=== PATIENT | female | born 1980 | race Two or more races ===

== ENCOUNTER 2019-11-25 14:57 | Outpatient (CLI) | payer OTHER | END 2019-11-25 15:02 | disposition home or self-care (01) | LOC: RAD 14:57 | PROVIDERS: ATTEND Orthopaedic Surgery | DX: M25.572 Pain in left ankle and joints of left foot (principal) ==

== ENCOUNTER 2019-12-02 15:09 | Outpatient (CLI) | payer OTHER | END 2019-12-02 15:13 | disposition home or self-care (01) | LOC: RAD 15:09 | PROVIDERS: ATTEND Orthopaedic Surgery | DX: M25.572 Pain in left ankle and joints of left foot (principal) ==

== ENCOUNTER 2020-01-04 09:46 | Outpatient (CLI) | payer OTHER | END 2020-01-04 09:52 | disposition home or self-care (01) | LOC: RAD 09:46 | PROVIDERS: ATTEND Orthopaedic Surgery | DX: S82.872D Displaced pilon fracture of left tibia, subsequent encounter for closed fracture with routine healing (principal) ==

== ENCOUNTER 2020-02-09 10:12 | Outpatient (CLI) | payer OTHER | END 2020-02-09 10:21 | disposition HB | LOC: RAD 10:12 | PROVIDERS: ATTEND Orthopaedic Surgery | DX: S82.872D Displaced pilon fracture of left tibia, subsequent encounter for closed fracture with routine healing (principal) ==

== ENCOUNTER 2020-03-07 12:49 | Outpatient (CLI) | payer OTHER | END 2020-03-07 12:57 | disposition home or self-care (01) | LOC: RAD 12:49 | PROVIDERS: ATTEND Orthopaedic Surgery | DX: S82.872D Displaced pilon fracture of left tibia, subsequent encounter for closed fracture with routine healing (principal) ==

== ENCOUNTER 2020-06-29 10:13 | Outpatient (CLI) | payer OTHER | END 2020-06-29 15:23 | disposition home or self-care (01) | LOC: RAD 10:13 | PROVIDERS: ATTEND General Practice | DX: S82 Fracture of lower leg, including ankle (principal) ==

== ENCOUNTER 2020-08-23 08:06 | Outpatient (CLI) | payer OTHER | END 2020-08-23 08:12 | disposition home or self-care (01) | LOC: MRI 08:06 | PROVIDERS: ATTEND Radiology Nuclear Radiology | DX: D25.0 Submucous leiomyoma of uterus (principal); N80.0 Endometriosis of uterus; D25.1 Intramural leiomyoma of uterus | CPT/HCPCS: 72197 ==

== ENCOUNTER 2020-10-24 15:09 | Outpatient (CLI) | payer OTHER | END 2020-10-24 15:18 | disposition home or self-care (01) | LOC: EKG 15:09 | DX: Z01.810 Encounter for preprocedural cardiovascular examination (principal); D25.1 Intramural leiomyoma of uterus ==

== ENCOUNTER 2020-12-20 14:12 | Outpatient (CLI) | payer OTHER | END 2020-12-20 14:22 | disposition home or self-care (01) | LOC: SONOGRAMA 14:12 | DX: N64.4 Mastodynia (principal) ==

== ENCOUNTER 2021-06-26 12:03 | Outpatient (CLI) | payer OTHER | END 2021-06-26 12:08 | disposition home or self-care (01) | LOC: MAMO-SONO 12:03 | PROVIDERS: ATTEND Obstetrics & Gynecology | DX: N63.20 Unspecified lump in the left breast, unspecified quadrant (principal) ==

== ENCOUNTER 2021-10-12 14:01 | Outpatient (CLI) | payer OTHER | END 2021-10-12 14:09 | disposition home or self-care (01) | LOC: RAD 14:01 | DX: M25.511 Pain in right shoulder (principal) ==

== ENCOUNTER 2021-11-14 09:43 | Outpatient (CLI) | payer OTHER | END 2021-11-14 09:47 | disposition home or self-care (01) | LOC: SONOGRAMA 09:43 | PROVIDERS: ATTEND General Practice | DX: N85.8 Other specified noninflammatory disorders of uterus (principal) ==

== ENCOUNTER 2022-11-18 11:54 | Outpatient (CLI) | payer OTHER | END 2022-11-18 12:02 | disposition home or self-care (01) | LOC: MAMO-SONO 11:54 | DX: Z12.31 Encounter for screening mammogram for malignant neoplasm of breast (principal); N64.4 Mastodynia; R10.2 Pelvic and perineal pain ==

== ENCOUNTER 2024-05-04 10:17 | Outpatient (CLI) | payer OTHER | END 2024-05-04 10:27 | disposition home or self-care (01) | LOC: MAMO-SONO 10:17 | DX: N64.2 Atrophy of breast (principal); I11.9 Hypertensive heart disease without heart failure; D25.1 Intramural leiomyoma of uterus ==